=== PATIENT | male | born 1995 | race Caucasian/White ===

== ENCOUNTER 2019-06-27 07:12 | Emergency (ER) | payer SELFPAY ==
[~2019-06-27] VITALS: Ht 172.7 cm; Wt 65.0 kg
[2019-06-27] MEDS ORDERED: MORPHINE SULFATE 4 MG/ML CPJ (NOT FOR IM USE) IV ONE (07:30)
[2019-06-27 09:15] VITALS: BP 130/74
== END 2019-06-27 09:30 | disposition home or self-care (01) ==
LOC: ER 07:12
DX: S02.31XA Fracture of orbital floor, right side, initial encounter for closed fracture (principal); S42.001A Fracture of unspecified part of right clavicle, initial encounter for closed fracture; M25.552 Pain in left hip; V49.59XA Passenger injured in collision with other motor vehicles in traffic accident, initial encounter; Y93.89 Activity, other specified; Y92.488 Other paved roadways as the place of occurrence of the external cause
CPT/HCPCS: 70450; 70486; 71045; 72125; 72170; 73000; 96374; 99284; J2270